=== PATIENT | female | born 1960 | race Caucasian/White ===

== ENCOUNTER 2019-11-03 06:13 | Inpatient (IN) | payer OTHER ==
[2019-11-03] MEDS ORDERED: niCARdipine 20MG In NaCl 20 MG/200 ML BAG ONE (06:26)
--- NOTE | 2019-11-03 06:59 | PDOC.FPRHP ---
- History of Present Illness Chief Complaint: Stroke History of Present Illness: Pt is a 59 yo female transferred from [place] secondary to a hemorrhagic stroke noted on CT scan. EMS was notified by pt's out of town who was unable to get in touch with her for 17 hours. EMS found pt and was unable to provide much information but was having "stroke-like" symptoms affecting R side strength and a degree of aphasia. PCP: [facility] Course: In the ED, Dr. Cramer consulted Neurosurgery, Jose. Cardene drip initiated. Believe it is non-surgical. - History PMHx: PSHx: FHx: Social: - Vital signs BP: 146/88 HR: 112 RR: 20 Tmax: 98.4 Pox: 97% on RA Wt: 98 kg FMR H&P: Upper Level - Pertinent history 59 yo F with hx of HTN here as transfer from [place] with dx there of hemorrhagic CVA. 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 She was found after a wellness check called in by her who is currently abroad. Upon arrival to the ED she was aphasic and had right hemiplegia. There were no significant lab abnormalities. BP was greater than [address] here show intracranial hemorrhage in the L MCA distribution. Neurosurgery was consulted from the ER who determined there to be no surgical intervention indicated at that time. She was started on a Cardene drip in the ER and BP improved to the 140 systolic range. Upon evaluation pt could no appropriately answer questions PMHx HTN Surgical hx Appendectomy Social No etoh, tobacco, or drug history - Pertinent findings See physician/internist note for full ROS, PE, vitals, and labs ROS unobtainable PE General NAD, awake and responsive HEENT NCAT CV RRR, 3/6 systolic murmur Resp CTA, no respiratory distress Abd non tender, no distension, normal BS Extremities no edema, equal pedal pulses Skin multiple dressed ulcerations on LE Neuro pt has slowed mentation, but will move all extremities upon command. She has equal strength b/l. CN appear to be intact, however she is having some difficulty following commands involved in evaluation. Pt can speak, however does not answer appropriately - Plan Date/Time: 11/03/19 0656 Alonso Cai, PGY3, have evaluated this patient and agree with findings/ plan as outlined by physician/internist resident. Pertinent changes/additions are listed here. 1.Acute hemorrhagic CVA -Admit to CCU -Continue cardene with goal of <160 systolic per neurosurg recommendations -Repeat CT at 1200 -Consult stroke team -Lipid, A1c, TSH 2.HTN -Pt apparently not on any meds per . Will start meds as indicated by BP after cardene is stopped PPx SCD Diet NPO Code Full Addendum - Attending - Attending Attestation Date/Time: 11/03/19 0900 I personally evaluated the patient and discussed the management with Dr. Rosado /Olga. I agree with the History, Examination, Assessment and Plan documented above with any addition or exceptions noted below. Patient here with acute hemorrhagic infarct seen on CT with initial R sided paresis that has improved somewhat. She is currently awake, but slow to respond. Has expressive aphasia. She is able to move both the RUE and RLE. NSGY on board, recommends repeat NCHCT in a few hours. Cardene with goal SBP <160. Will need otherwise the normal post- hemorrhagic CVA care including Neuro, therapy services, and likely placement. Hold ASA.
[2019-11-03] MEDS ORDERED: Bisacodyl 10 MG SUPP PR PRN (08:11)
--- NOTE | 2019-11-03 08:11 | CON ---
DATE OF CONSULTATION: Ms. Loera is a 59-year-old woman transferred to us from [facility] for stroke-like symptoms reportedly from hospital there. is deployed overseas and had been in contact with his now 20 to 24 hours ago, but had not heard from her since and has not been able to make any contact since either. For this reason, he called the [facility] for a welfare check. At which point, folks found her on scene confused with possible stroke-like symptoms. She was taken to [place] ER, where CT was performed, that showed a superficial left-sided frontoparietal intracerebral hemorrhage, which measures roughly 40 cubic centimeter in size with sizable rim of vasogenic edema and midline shift, measuring around 3 mm. She was then transferred to [facility] for further evaluation and admission. We do not have any medical history on file other than knowing patient has history of hypertension. She was extraordinarily hypertensive in the department in [place] and upon arrival here with systolics in the 220s, though we do not know what medications that she is currently on. is not reachable given he is out of the country at the moment and we have no other additional contacts to verify. Coagulation studies and platelet count are normal. However, there are certainly anticoagulant and antiplatelets that will not cause such drastic lab abnormalities. At bedside this morning, the patient is drowsy, but arousable with minimal effort. Upon repeated questioning, she is able to tell me her name, but does not tell me the month or the year. She does follow simple commands, squeezes my hands, raises her legs, wiggles her toes bilaterally. She actually has quite excellent strength in the right upper and right lower extremity, which sounds to be much improved, given our initial discussion was right-sided weakness that was pretty dense. Recommendation at this time, systolic pressure is under [address] scan around noon today. As long as this looks stable, this likely represents nonoperative hemorrhage if she develops more significant midline shift and vasogenic edema, it is reasonable to consider adding mannitol therapy, but for now, we will hold this given her relatively improved neurologic examination and minimal midline shift. We will know more after repeat CT. Job ID: [id number]
[2019-11-03] MEDS: Sodium Chloride 0.9% 1,000 ML IV SCH ×2 (09:34→16:15)
[2019-11-03] MEDS: Famotidine/PF 20 mg/2ml Vial SLOW IVP SCH ×2 (09:34→20:15)
[2019-11-03] MEDS: niCARdipine 25 MG in Sodium Chloride 0.9% 250 ML 240 ML IVPB PRN ×3 (09:35→17:25)
[2019-11-03] MEDS: Morphine 2 MG/ML SYRINGE SLOW IVP PRN ×3 (11:26→20:16)
--- NOTE | 2019-11-03 12:21 | CT ---
CT BRAIN NONCONTRAST: DATE: 11/03/2019 12 6:00 PM HISTORY: 59-year-old female follow-up intracranial hemorrhage COMPARISON: 11/03/2019 4:59 AM FINDINGS: Previously, the scan was performed in transverse plane, without angulation. On the current CT, the st andard coronal-transverse angulation was applied. This makes comparison slightly difficult. The acute left temporal parietal large intra-axial hematoma measuring approximately 5.8 x 3.9 cm, wit h surrounding vasogenic edema, has probably not significantly changed in size. It causes mass effect, completely effacing the trigone and occipital horn of the left lateral ventricle, distorting the lateral ventricles, and causing right to left midline shift of the septum pellucidum a distance of approximately 0.8 cm. There is no new hemorrhage. There is probably no interval change overall. IMPRESSION: 1) large, acute, left cerebral intra-axial hematoma causing mass effect and subfalcine herniation. 2) probably no significant interval change. 3) continued follow-up recommended.
--- NOTE | 2019-11-03 12:39 | CON ---
DATE OF CONSULTATION: HISTORY OF PRESENT ILLNESS: Jacinta Loera is a 59-year-old female from [place], who apparently was found with stroke-like symptoms. In the emergency room, CT showed a large left-sided hemorrhage, probably hypertensive. She was put on a Cardene drip and transferred here. In the ICU, she has been complaining of some pain, she is not moving her right side. Pulse is 103, blood pressure 160/83, saturations 95%, and respiratory rate 17. We are unable to get any additional information at this stage. We will try and obtain one as soon as family is available. PAST MEDICAL HISTORY: Unknown. PAST SURGICAL HISTORY: Unknown. REVIEW OF SYSTEMS: Otherwise, unobtainable. PHYSICAL EXAMINATION: VITAL SIGNS: Temperature is 98, pulse is 107, blood pressure 159/83, and sats are 95%. CHEST: Decreased breath sounds. No wheezing. CARDIAC: Normal S1 and S2. No gallops. ABDOMEN: No masses. LABORATORY DATA: Labs, so far, unremarkable. Lytes are normal. White count 15,000 drug screen is negative. IMPRESSION: Left temporoparietal hemorrhage, large, 5 x 5 cm, history of presumed hypertension. PLAN: The patient is complaining of pain. We are going to initiate some pain medicine, low-dose morphine. Unfortunately, there is no IV Tylenol. Pulmonary/Critical Care will follow while in the ICU. Consultation note, 70 minutes, 50% direct patient care. Please note, we will wait for additional history to be obtained from family members as soon as they arrive. Job ID: [id number]
--- NOTE | 2019-11-03 13:49 | CON ---
DATE OF CONSULTATION: 11/03/2019 REASON FOR CONSULTATION: Hemorrhagic stroke. HISTORY OF PRESENT ILLNESS: Ms. Jacinta Loera is a 59-year-old female, who has been transferred from [place] because of hemorrhagic stroke, which was noted on head CT. The patient is unable to provide history at this time. The history is obtained from review of the records. According to the review of the records, the who was out of town called the EMS to check on the patient since he was unable to get in touch for the last 17 hours. EMS found the patient at home, confused and unable to provide history with right-sided weakness. In the emergency room, she was found to be aphasic and had right hemiplegia. Her blood pressure was greater than [address] shows intracranial hemorrhage in the left MCA distribution. Neurosurgery was consulted and they determined there was no surgical intervention needed at this time and she was started on Cardene drip and sent to ICU for further evaluation. REVIEW OF SYSTEMS: Unobtainable due to patient's mental status. PAST MEDICAL HISTORY: Hypertension. PAST SURGICAL HISTORY: Appendectomy. SOCIAL HISTORY: . Lives with . No history of alcohol, illegal drug abuse, or tobacco abuse. FAMILY HISTORY: No significant history. PHYSICAL EXAMINATION: GENERAL: The patient is awake, alert, follows commands intermittently. HEENT: Normocephalic and atraumatic. CVS: Regular rate and rhythm. CHEST: Clear. ABDOMEN: Soft. NEUROLOGICAL: Mental status; the patient is alert, awake, follows commands intermittently. Oriented to her name only. Cranial nerves 2 through 12 intact. Speech, receptive aphasia. Muscle, tone, and bulk are normal. Strength 3/5 in the right upper and lower extremity. 5/5 in the left upper and lower extremity. Sensory: Withdraws to nailbed pressure, left greater than right. Cerebellar, did not cooperate with the exam. Gait deferred due to patient's safety reason. She does seem to have right extraocular movements. Follows commands intermittently , but appears to have right homonymous hemianopia. Pupils equal and reactive to light. Face symmetric. Tongue midline. Moves neck in both direction. Hearing seems to be intact. DATA REVIEWED: I reviewed the head CT, which showed hemorrhage in the left MCA distribution. ASSESSMENT AND PLAN: Ms. Jacinta Loera is consulted for hemorrhagic stroke. Recommend MRI of the brain when stable. Neuro checks every 2 hours. Consider stat noncontrast head CT if the condition is going to decline. Hold aspirin at this time. Monitor blood pressure. Systolic blood pressure should be less than 160. Continue medical management per primary team. MRI of the brain when stable. 2D echocardiogram, carotid Dopplers when stable. Check lipid panel, hemoglobin A1c, TSH, telemetry. Continue medical management per primary team. PT/OT/Speech when stable. We will continue to follow. Thank you for the consult. Job ID: [id number] [facility] CENTERZarina
[2019-11-03] MEDS ORDERED: Mannitol 12.5 GM/50 ML SLOW IVP SCH (15:00)
[2019-11-03] MEDS ORDERED: MANNITOL IV SCH ×2 (15:15)
[2019-11-04] MEDS: niCARdipine 25 MG in Sodium Chloride 0.9% 250 ML 240 ML IVPB PRN ×3 (00:20→11:08)
[2019-11-04] MEDS: Morphine 2 MG/ML SYRINGE SLOW IVP PRN (00:43)
[2019-11-04] MEDS: Sodium Chloride 0.9% 1,000 ML IV SCH ×3 (00:46→16:14)
[2019-11-04 03:57] LABS: #Lymphocytes 0.7 thou/uL (1.20-3.40); #Monocytes 0.4 thou/uL (0.11-0.59); #Neutrophils 11.1 thou/uL (1.40-6.50); %Basophils 0.1 % (0.0-1.0); %Eosinophils 0.1 % (0.0-10.0); %Lymphocytes 5.8 % (21.0-51.0); %Monocytes 3.6 % (0.0-10.0); %Neutrophils 90.5 % (42.0-75.0); Hemoglobin 13.3 g/dL (12.0-16.0); Mean Corpuscular HGB CONC 33.8 g/dL (32.0-36.0); Mean Corpuscular Volume 82.9 fL (78.0-98.0); Mean Platelet Volume 9.4 fL (7.4-10.4); Platelet Count 218 thou/uL (130-400); RBC Distribution Width 13.4 % (11.5-14.5); Red Blood Cell (RBC) Count 4.73 mill/uL (4.20-5.40); White Blood Cell (WBC) Count 12.3 thou/uL (4.8-10.8)
[2019-11-04 04:26] LABS: Anion Gap 11 mmol/L (10-20); BUN (Urea Nitrogen) 11 mg/dL (9.8-20.1); Calc. Creatinine Clearance 93 mL/min (70-130); Calcium 9.5 mg/dL (7.8-10.44); Carbon Dioxide 25 mmol/L (22-29); Cardiac Risk 5.2 (Less than 4.5); Chloride 107 mmol/L (98-107); Cholesterol 193 mg/dl (< 200 Desired); Estimated GFR-MDRD 73; Glucose 129 mg/dL (70-105); HDL Cholesterol 37 mg/dL (>60 Neg Risk); LDL Cholesterol, Calculated 137 mg/dL; Potassium 3.4 mmol/L (3.5-5.1); Sodium 140 mmol/L (136-145); Triglycerides 96 mg/dL (Less than 150)
--- NOTE | 2019-11-04 07:26 | PDOC.FM ---
- Subjective Subjective: NAEO per nursing. Patient unable to effectively communicate or answer questions. Semi fluent speech but inappropriate responses to questions, similar to yesterday's exam. Awake, alert but difficulty with comprehension. Patient denies pain, headache. - Objective MAR Reviewed: Yes Vital Signs & Weight: Vital Signs (12 hours) Temp Pulse Ox 11/04/19 07:10 95 11/04/19 04:00 99.2 F 11/04/19 00:44 92 L 11/04/19 00:00 98.5 F 11/03/19 20:00 99.4 F 92 L Weight Weight 76 kg Most Recent Monitor Data Heart Rate from ECG 105 NIBP 146/93 NIBP BP-Mean 110 Respiration from ECG 15 SpO2 95 I&O: 11/03/19 11/04/19 11/05/19 06:59 06:59 06:59 Intake Total 3933 0 Output Total 3150 65 Balance 783 -65 Result Diagrams: 11/04/19 03:19 11/04/19 03:19 Phys Exam - Physical Examination Constitutional: NAD HEENT: PERRLA, moist MMs, sclera anicteric Neck: full ROM no respiratory distress Cardiovascular: no significant murmur tachycardic Gastrointestinal: soft, non-tender Musculoskeletal: no edema Neurological: non-focal, moves all 4 limbs pt responds with coherent wording but inappropriately Deviation from normal: a&o x0 due to comprehension Dx/Plan (1) Hemorrhagic cerebrovascular accident (CVA) Code(s): I61.9 - NONTRAUMATIC INTRACEREBRAL HEMORRHAGE, UNSPECIFIED Status: Acute (2) Chronic hypertension Code(s): I10 - ESSENTIAL (PRIMARY) HYPERTENSION Status: Acute - Plan Plan: Acute hemorrhagic CVA with subfalcine herniation Neuro exam unchanged today S/P mannitol x1 BP control < 160mmHg, cardizem gtt at 7.5 Neurosurgery on board, recs appreciated Chronic HTN Will need to start jail antihypertensive once stabilized VTE: scd's, anticoagulation contraindicated Diet: NPO, pending speech Fluids: NS 130 mls/hr while NPO Code: full per Dispo: Continue BP control w/ cardene drip. Diet pending speech eval. Continue neuro checks. Addendum - Attending - Attending Attestation Date/Time: 11/04/19 1153 I personally evaluated the patient and discussed the management with Dr. Vazquez. I agree with the History, Examination, Assessment and Plan documented above with any addition or exceptions noted below. Patient mentation overall improved this morning. She has been cleared by [facility] [employer] COORDINATOR for a PO diet. Will start transitioning to PO BP meds and wean Cardene. NSGY and Neuro on board. Suspect once off Cardene that she can transfer to stroke unit. Holding ASA, but continue other usual post-CVA care.
[2019-11-04 08:07] LABS: Hemoglobin A1c 5.5 % (4.0-6.0)
[2019-11-04] MEDS: Famotidine/PF 20 mg/2ml Vial SLOW IVP SCH (08:38)
--- NOTE | 2019-11-04 08:43 | PRG ---
DATE OF SERVICE: SUBJECTIVE: This morning, less nauseated, still got a headache. OBJECTIVE: VITAL SIGNS: Saturations are 95% on room air, blood pressure 146/90, pulse 100. She is on a Cardene drip. CHEST: No wheezing. No crackles. CARDIAC: Normal S1, S2. No gallops. ABDOMEN: Soft. LABORATORY DATA: Potassium 3.4. CT head shows a left intracerebral hemorrhage with shift. PLAN: Continue supportive care. Agree with Speech. If she can swallow, we can give her some potassium. We will follow while in the ICU. Job ID: [id number]
[2019-11-04] MEDS ORDERED: Potassium Chloride 20 MEQ TAB PO SCH (10:30)
[2019-11-04] MEDS ORDERED: Carvedilol 6.25 MG TAB PO SCH (10:30)
--- NOTE | 2019-11-04 12:34 | PDOC.HOSPP ---
- Subjective Encounter Date: 11/04/19 Subjective: NEUROLOGY PROGRESS NOTE No acute events overnight. Patient more responsive today. - Objective Vital Signs & Weight: Vital Signs (12 hours) Temp Pulse Pulse BP BP BP Pulse Ox 11/04/19 12:00 98.4 F 11/04/19 10:58 136/81 11/04/19 10:31 100 100 136/81 138/83 11/04/19 07:10 95 11/04/19 04:00 99.2 F 11/04/19 00:44 92 L Pulse Ox Pulse Ox 11/04/19 12:00 11/04/19 10:58 11/04/19 10:31 95 96 11/04/19 07:10 11/04/19 04:00 11/04/19 00:44 Weight Admit Weight 167 lb Weight 167 lb 8.821 oz Most Recent Monitor Data Heart Rate from ECG 91 NIBP 122/76 NIBP BP-Mean 91 Respiration from ECG 16 SpO2 96 I&O: 11/03/19 11/04/19 11/05/19 06:59 06:59 06:59 Intake Total 3933 0 Output Total 3150 555 Balance 783 -555 Result Diagrams: 11/04/19 03:19 11/04/19 03:19 Additional Labs: Accuchecks 11/04/19 11/03/19 11/03/19 00:21 18:00 12:49 POC Glucose 128 H 86 94 Radiology Reviewed by me: Yes EKG Reviewed by me: Yes Hospitalist ROS - Review of Systems ROS unobtainable: due to mental status Neurological: reports: weakness, numbness - Medication Medications: Active Medications Generic Name Dose Route Start Last Admin Trade Name Freq PRN Reason Stop Dose Admin Famotidine 20 mg 11/03/19 09:00 11/04/19 08:38 Pepcid SLOW IVP 20 mg Q12HR NANDO Administration Sodium Chloride 1,000 mls @ 135 mls/hr 11/03/19 08:11 11/04/19 08:43 Normal Saline 0.9% IV 1,000 mls .[id number] NANDO Administration Nicardipine HCl 25 mg/ Sodium 250 mls @ 0 mls/hr 11/03/19 08:44 11/04/19 11: 08 Chloride IVPB 250 mls INF PRN Administration SBP > 140 Protocol Titrate Morphine Sulfate 2 mg 11/03/19 10:58 11/04/19 00:43 Morphine SLOW IVP 2 mg Q4H PRN Administration Mild-Moderate Pain (1-5) Potassium Chloride 40 meq 11/04/19 10:30 11/04/19 10:58 K-Dur PO 11/04/19 13:00 40 meq NOW NANDO Administration - Exam General Appearance: awake alert Eye: PERRL ENT: normocephalic atraumatic Neck: supple Heart: RRR Respiratory: CTAB Gastrointestinal: soft Extremities: no cyanosis, no clubbing, no edema Skin: normal turgor, no lesions, no rashes Neurological: hemiplegia, speech deficit Psychiatric: normal affect, normal behavior, oriented to person Hosp A/P (1) Hemorrhagic cerebrovascular accident (CVA) Code(s): I61.9 - NONTRAUMATIC INTRACEREBRAL HEMORRHAGE, UNSPECIFIED Status: Acute (2) Chronic hypertension Code(s): I10 - ESSENTIAL (PRIMARY) HYPERTENSION Status: Acute - Plan plan discussed w/ family (Plan discussed with son), speech therapy 59 year old female with hemorrhagic stroke. CT head showed large intraparenchymal hematoma in the left temporal parietal region measuring about 5.2 cm x 3.9 cm x 5.4 cm with adjacent vasogenic edema. There is a midline shift to the right side for about 8 mm. There is effacement of the occipital horn of the lateral ventricle. Repeat HCT stable. Neurochecks everyt 2 hours. Repeat NCHCT if the condition declines. Monitor BP ON cardene drip SBP < 160. Telemetry Cleared by speech . Continue supportive measures. Hold AC for now. Stroke work up including MRI brain, Echo and carotid dopplers when stable. PT/OT when stable. Plan discussed in detail with the patient's son.
[2019-11-04] MEDS: Carvedilol 6.25 MG TAB PO SCH (16:34)
[2019-11-04] MEDS: Famotidine 20 MG TAB PO SCH (20:15)
[2019-11-05 03:44] LABS: #Lymphocytes 1.5 thou/uL (1.20-3.40); #Monocytes 0.7 thou/uL (0.11-0.59); #Neutrophils 7.9 thou/uL (1.40-6.50); %Basophils 0.2 % (0.0-1.0); %Eosinophils 0.3 % (0.0-10.0); %Lymphocytes 14.6 % (21.0-51.0); %Monocytes 7.1 % (0.0-10.0); %Neutrophils 77.9 % (42.0-75.0); Hemoglobin 13.2 g/dL (12.0-16.0); Mean Corpuscular HGB CONC 32.2 g/dL (32.0-36.0); Mean Corpuscular Hemoglobin 26.7 pg (27.0-31.0); Mean Corpuscular Volume 82.8 fL (78.0-98.0); Mean Platelet Volume 8.6 fL (7.4-10.4); Platelet Count 218 thou/uL (130-400); RBC Distribution Width 13.1 % (11.5-14.5); Red Blood Cell (RBC) Count 4.94 mill/uL (4.20-5.40); White Blood Cell (WBC) Count 10.1 thou/uL (4.8-10.8)
[2019-11-05 04:06] LABS: Anion Gap 9 mmol/L (10-20); BUN (Urea Nitrogen) 11 mg/dL (9.8-20.1); Calc. Creatinine Clearance 92 mL/min (70-130); Calcium 9.3 mg/dL (7.8-10.44); Carbon Dioxide 29 mmol/L (22-29); Chloride 105 mmol/L (98-107); Estimated GFR-MDRD 74; Glucose 98 mg/dL (70-105); Potassium 3.2 mmol/L (3.5-5.1); Sodium 140 mmol/L (136-145)
--- NOTE | 2019-11-05 07:14 | PDOC.FM ---
- Subjective Subjective: NAEO. Cardene gtt off last evening. SBPs all under control. Pt able to respond yes/no to questions. Follow simple commands. Less lethargic compared to yesterday. Difficulty with speech still - Objective Vital Signs & Weight: Vital Signs (12 hours) Temp Pulse Ox 11/05/19 04:00 98.9 F 11/05/19 01:00 98.5 F 11/05/19 00:32 92 L 11/04/19 22:00 98.7 F 11/04/19 20:00 97 Weight Admit Weight 75.75 kg Weight 79.2 kg Most Recent Monitor Data Heart Rate from ECG 85 NIBP 137/89 NIBP BP-Mean 105 Respiration from ECG 0 SpO2 96 I&O: 11/04/19 11/05/19 11/06/19 06:59 06:59 06:59 Intake Total 3933 2521 Output Total 3150 2260 Balance 783 261 Result Diagrams: 11/05/19 03:29 11/05/19 03:29 Phys Exam - Physical Examination Constitutional: NAD HEENT: PERRLA, sclera anicteric Respiratory: no wheezing, clear to auscultation bilateral Cardiovascular: no significant murmur tachycardic Gastrointestinal: soft, non-tender Musculoskeletal: no edema difficulty with right hand movement. 3/5 strength in other extrem speech pauses but fluent Deviation from normal: flat affect Dx/Plan (1) Hemorrhagic cerebrovascular accident (CVA) Code(s): I61.9 - NONTRAUMATIC INTRACEREBRAL HEMORRHAGE, UNSPECIFIED Status: Acute (2) Chronic hypertension Code(s): I10 - ESSENTIAL (PRIMARY) HYPERTENSION Status: Acute - Plan Plan: Acute hemorrhagic CVA with subfalcine herniation Neuro exam unchanged today S/P mannitol x1 BP control controlled with PO coreg, cardene gtt discontinued PT/ST/OT eval today Echo, carotid dopplers Stable to stroke transfer Chronic HTN Coreg Hypokalemia Replace, check Mg VTE: scd's, anticoagulation contraindicated Diet: Puree Fluids: SL Code: full per Dispo: Continue CVA w/u with CM consulted to work on placement after PT/ST/OT. Addendum - Attending - Attending Attestation Date/Time: 11/05/19 1131 I personally evaluated the patient and discussed the management with Dr. Vazquez. I agree with the History, Examination, Assessment and Plan documented above with any addition or exceptions noted below. Patient overall stable. BP improved but will increase Coreg for better control. Off Cardene. Needs the usual post CVA care and therapy. Neuro on board. Will need likely rehab placement once she is stable for discharge.
[2019-11-05] MEDS: Famotidine 20 MG TAB PO SCH ×2 (08:47→22:13)
[2019-11-05] MEDS: Pot Chloride/Pot Bicarb/Cit Ac 25 mEq Effervescent Tablet PO SCH (08:47)
[2019-11-05] MEDS: Carvedilol 6.25 MG TAB PO SCH ×2 (08:48→16:48)
[2019-11-05] MEDS ORDERED: Potassium Chloride 20 MEQ TAB PO SCH (09:00)
[2019-11-05] MEDS ORDERED: Carvedilol 6.25 MG TAB PO SCH (09:21)
--- NOTE | 2019-11-05 09:27 | PRG ---
DATE OF SERVICE: 11/05/2019 SUBJECTIVE: This morning, she is a little bit more awake, responsive, less headache, still not moving the right side. OBJECTIVE: VITAL SIGNS: Blood pressure 154/92, pulse 70, respiratory rate 18, saturations are 95% on room air. CHEST: No wheezing, crackles. CARDIAC: Normal S1, S2. No gallops. ABDOMEN: No masses. LABORATORY DATA: Unremarkable. ASSESSMENT: Hypertensive bleed, left sided; residual right hemiparesis. P.o. medication and PT supportive care. She will probably be transferred to the Stroke Unit. Job ID: [id number]
--- NOTE | 2019-11-05 11:50 | PDOC.HOSPP ---
- Subjective Encounter Date: 11/05/19 Subjective: NEUROLOGY PROGRESS NOTE No acute events overnight. More alert and following commands intermitttently. She is speaking in senternces but does not reply appropriately yo questions and unable to tell her name. - Objective Vital Signs & Weight: Vital Signs (12 hours) Temp BP Pulse Ox 11/05/19 09:38 169/100 H 11/05/19 08:48 144/90 H 11/05/19 07:15 96 11/05/19 07:00 99.1 F 11/05/19 04:00 98.9 F 11/05/19 01:00 98.5 F 11/05/19 00:32 92 L Weight Admit Weight 167 lb Weight 174 lb 9.698 oz Most Recent Monitor Data Heart Rate from ECG 88 NIBP 147/93 NIBP BP-Mean 111 Respiration from ECG 16 SpO2 93 I&O: 11/04/19 11/05/19 11/06/19 06:59 06:59 06:59 Intake Total 3933 2521 240 Output Total 3150 2260 485 Balance 783 261 -245 Result Diagrams: 11/05/19 03:29 11/05/19 03:29 Additional Labs: Accuchecks 11/04/19 11/04/19 11/04/19 20:19 15:44 09:23 POC Glucose 99 92 123 H Radiology Reviewed by me: Yes EKG Reviewed by me: Yes Hospitalist ROS - Review of Systems ROS unobtainable: due to mental status (aphasia) Neurological: reports: change in speech - Medication Medications: Active Medications Generic Name Dose Route Start Last Admin Trade Name Freq PRN Reason Stop Dose Admin Carvedilol 6.25 mg 11/04/19 17:00 11/05/19 08:48 Coreg PO 6.25 mg BID-WM NANDO Administration Carvedilol 6.25 mg 11/05/19 09:21 11/05/19 09:38 Coreg PO 11/05/19 12:00 6.25 mg NOW NANDO Administration Famotidine 20 mg 11/04/19 21:00 11/05/19 08:47 Pepcid PO 20 mg Q12HR NANDO Administration Nicardipine HCl 25 mg/ Sodium 250 mls @ 0 mls/hr 11/03/19 08:44 11/04/19 11: 08 Chloride IVPB 250 mls INF PRN Administration SBP > 140 Protocol Titrate Potassium Bicarb/Potassium Chloride 25 meq 11/05/19 08:00 11/05/19 08:47 K-Lyte Cl PO 25 meq QAM-WM NANDO Administration - Exam General Appearance: awake alert Eye: PERRL, anicteric sclera ENT: normocephalic atraumatic, no oropharyngeal lesions Neck: supple, symmetric Heart: RRR Respiratory: CTAB Gastrointestinal: soft Extremities: no cyanosis Skin: normal turgor, no lesions, no rashes Neurological: cranial nerve grossly intact, no new deficit, speech deficit Neurological - other findings: right hemiparesis, aphasia Musculoskeletal: normal tone, no muscle wasting Psychiatric: normal affect, not oriented (aphasia) Hosp A/P (1) Hemorrhagic cerebrovascular accident (CVA) Code(s): I61.9 - NONTRAUMATIC INTRACEREBRAL HEMORRHAGE, UNSPECIFIED Status: Acute (2) Chronic hypertension Code(s): I10 - ESSENTIAL (PRIMARY) HYPERTENSION Status: Acute - Plan plan discussed w/ family (sister), PT/OT, speech therapy, DVT proph w/SCDs 59 year old female with hemorrhagic stroke. CT head showed large intraparenchymal hematoma in the left temporal parietal region measuring about 5.2 cm x 3.9 cm x 5.4 cm with adjacent vasogenic edema. There is a midline shift to the right side for about 8 mm. There is effacement of the occipital horn of the lateral ventricle. Repeat HCT stable. Stable. Transferred to stroke unit. Recommend MRI brain. Recommend 2 D Echo and carotid dopplers. Neurochecks everyt 2 hours. Repeat NCHCT if the condition declines. Monitor BP ON cardene drip SBP < 160. Telemetry Strict control of BP and BG. Recommend statin for secondary stroke prevention. Continue supportive measures. PT/OT/ Speech when stable. Cpntinue medical management per primary team. Plan discussed in detail with the patient's sister
--- NOTE | 2019-11-05 13:54 | ULT ---
EXAM: BILATERAL CAROTID DUPLEX ULTRASOUND INCLUDING COLOR AND SPECTRAL DOPPLER IMAGIN11/05/19 HISTORY: CVA. FINDINGS: minimal intimal thickening bilaterally involving the distal CCAs and proximal ICAs. PSV right ICA 79 cm/s. EDV 12 cm/s. ICA/CCA ratio 0.8. PSV left ICA 68 cm/s. EDV 15 cm/s. ICA/CCA ratio 0.8. Vertebral flow is antegrade. IMPRESSION: 1. No abnormal increased velocities. 2. Minimal intimal thickening bilaterally, evidence for atherosclerotic carotid artery vascular disease. POS: AH
[2019-11-05] MEDS: hydrALAZINE 20 MG/ML VIAL SLOW IVP PRN ×2 (16:21→22:29)
--- NOTE | 2019-11-05 19:12 | MRI ---
MRI OF BRAIN WITHOUT CONTRAST: 11/05/19 INDICATIONS: Follow-up parenchymal hematoma. Hemorrhagic CVA given as reason for exam. COMPARISON: Comparison made to CT scans of 11/03/19. FINDINGS: The parenchymal hematoma involving the left parietal lobe is again noted. Hematoma measures 4 to 5 cm AP dimension, unchanged when compared to recent CT. Surrounding vasogenic edema and mild mass effect . There is midline shift measured at 6 to 7 mm, unchanged. Signal characteristic consistent with omid lving hematoma. There are high T1 areas with predominantly low T2 signal characteristics. This would be consistent with subacute hematoma. Mild restricted diffusion around the periphery of the hematoma. There is no other areas of restricted diffusion. The intracranial internal carotid arteries, cerebral arteries and basilar arteries show flow voids. D ural venous sinuses appear patent. IMPRESSION: Left parietal lobe hematoma is again noted. There is mass effect and midline shift which has not sign ificantly changed when compared to CT of 11/03/19. POS: AGW
[2019-11-05] MEDS: Atorvastatin Calcium 40 MG TAB PO SCH (22:13)
[2019-11-05] MEDS: Acetaminophen 325 MG TAB PO PRN (22:29)
[2019-11-06 05:02] LABS: #Lymphocytes 1.6 thou/uL (1.20-3.40); #Monocytes 0.8 thou/uL (0.11-0.59); #Neutrophils 7.7 thou/uL (1.40-6.50); %Basophils 0.3 % (0.0-1.0); %Eosinophils 0.5 % (0.0-10.0); %Lymphocytes 15.5 % (21.0-51.0); %Monocytes 7.7 % (0.0-10.0); %Neutrophils 76.1 % (42.0-75.0); Hemoglobin 14.3 g/dL (12.0-16.0); Mean Corpuscular HGB CONC 33.1 g/dL (32.0-36.0); Mean Corpuscular Hemoglobin 27.5 pg (27.0-31.0); Mean Corpuscular Volume 83.1 fL (78.0-98.0); Mean Platelet Volume 8.6 fL (7.4-10.4); Platelet Count 245 thou/uL (130-400); RBC Distribution Width 13.4 % (11.5-14.5); Red Blood Cell (RBC) Count 5.21 mill/uL (4.20-5.40); White Blood Cell (WBC) Count 10.1 thou/uL (4.8-10.8)
[2019-11-06 05:20] LABS: Anion Gap 10 mmol/L (10-20); BUN (Urea Nitrogen) 14 mg/dL (9.8-20.1); Calc. Creatinine Clearance 100 mL/min (70-130); Calcium 9.6 mg/dL (7.8-10.44); Carbon Dioxide 26 mmol/L (22-29); Chloride 107 mmol/L (98-107); Estimated GFR-MDRD 73; Glucose 110 mg/dL (70-105); Potassium 3.4 mmol/L (3.5-5.1); Sodium 140 mmol/L (136-145)
--- NOTE | 2019-11-06 06:41 | PDOC.FM ---
- Subjective Subjective: Patient doing well this morning. SBPs up in 160s-170s systolic yesterday, Coreg dose was increased yesterday evening and this morning all SBPs under control. Pt able to respond yes/no to questions. Follow simple commands. Difficulty with speech still. - Objective MAR Reviewed: Yes Vital Signs & Weight: Vital Signs (12 hours) Temp Pulse Resp BP BP BP Pulse Ox 11/06/19 04:23 98.1 F 65 12 117/77 94 L 11/05/19 23:26 99.1 F 83 12 131/64 95 11/05/19 22:29 83 170/93 H 11/05/19 20:01 98.6 F 81 16 135/76 95 Weight Admit Weight 75.75 kg Weight 83.915 kg Most Recent Monitor Data Heart Rate from ECG 88 NIBP 147/93 NIBP BP-Mean 111 Respiration from ECG 16 SpO2 93 I&O: 11/04/19 11/05/19 11/06/19 06:59 06:59 06:59 Intake Total 3933 2521 240 Output Total 3150 2260 1485 Balance 783 261 -1245 Result Diagrams: 11/06/19 04:38 11/06/19 04:38 Phys Exam - Physical Examination Constitutional: NAD HEENT: moist MMs, sclera anicteric Neck: no JVD, supple Respiratory: no wheezing, clear to auscultation bilateral Cardiovascular: RRR, no significant murmur Gastrointestinal: soft, no distention, positive bowel sounds Musculoskeletal: pulses present trace edema in BLE Neurological: moves all 4 limbs gross motor strength 3/5 in all extremities, slighly less on right Psychiatric: normal affect Deviation from normal: alert, oriented to person & place (hospital) Skin: no rash, normal turgor Dx/Plan (1) Hemorrhagic cerebrovascular accident (CVA) Code(s): I61.9 - NONTRAUMATIC INTRACEREBRAL HEMORRHAGE, UNSPECIFIED Status: Acute (2) Chronic hypertension Code(s): I10 - ESSENTIAL (PRIMARY) HYPERTENSION Status: Acute - Plan Plan: Patient is a 59 yo female who was found with AMS at home is admitted for hemorrhagic CVA: #Acute hemorrhagic CVA with subfalcine herniation -Neuro exam unchanged today -S/P mannitol x1 -BP control controlled with PO coreg started on 11/03, cardene gtt discontinued on 11/03 -Coreg dose increased from 6.25 to 12.5 mg BID on 11/04 -PT/ST/OT evaluated, all recommend rehab placement -ECHO pending -carotid dopplers unremarkable -transferred to stroke unit on 11/04 -MRI on 11/[address] head on 11/02 #Chronic HTN -continue Coreg, as above #Hypokalemia -Replace, check Mg VTE: scd's, anticoagulation contraindicated Diet: Puree--can advanced to ground textured solids per Speech therapy recs Fluids: SL Code: full per Dispo: Stable, admitted to inpatient on stroke unit. Continue CVA w/u with CM consulted to work on placement at rehab facility. Addendum - Attending - Attending Attestation Date/Time: 11/06/19 9213 I personally evaluated the patient and discussed the management with Dr. Watson. I agree with the History, Examination, Assessment and Plan documented above with any addition or exceptions noted below.
[2019-11-06] MEDS: Famotidine 20 MG TAB PO SCH ×2 (08:42→20:43)
[2019-11-06] MEDS: Carvedilol 6.25 MG TAB PO SCH ×2 (08:42→17:18)
[2019-11-06] MEDS: Pot Chloride/Pot Bicarb/Cit Ac 25 mEq Effervescent Tablet PO SCH (10:30)
--- NOTE | 2019-11-06 11:30 | PDOC.HOSPP ---
- Subjective Encounter Date: 11/06/19 Subjective: NEUROLOGY PROGRESS NOTE No acute events overnight. Patient off cardene drip and BP is under control. at bedside. - Objective Vital Signs & Weight: Vital Signs (12 hours) Temp Pulse Resp BP BP Pulse Ox 11/06/19 08:59 95 11/06/19 08:36 98.1 F 84 16 163/93 H 95 11/06/19 04:23 98.1 F 65 12 117/77 94 L Weight Admit Weight 167 lb Weight 185 lb Most Recent Monitor Data Heart Rate from ECG 88 NIBP 147/93 NIBP BP-Mean 111 Respiration from ECG 16 SpO2 93 I&O: 11/05/19 11/06/19 11/07/19 06:59 06:59 06:59 Intake Total 2521 240 250 Output Total 2260 1485 Balance 261 -1245 250 Result Diagrams: 11/06/19 04:38 11/06/19 04:38 Additional Labs: Accuchecks 11/05/19 17:54 POC Glucose 109 Radiology Reviewed by me: Yes EKG Reviewed by me: Yes Hospitalist ROS - Review of Systems ROS unobtainable: due to mental status (aphasia) - Medication Medications: Active Medications Generic Name Dose Route Start Last Admin Trade Name Freq PRN Reason Stop Dose Admin Acetaminophen 650 mg 11/05/19 07:09 11/05/19 22:29 Tylenol PO 650 mg Q6H PRN Administration Mild-Moderate Pain (1-5) Atorvastatin Calcium 40 mg 11/05/19 21:00 11/05/19 22:13 Lipitor PO 40 mg HS NANDO Administration Carvedilol 12.5 mg 11/05/19 17:00 11/06/19 08:42 Coreg PO 12.5 mg BID-WM NANDO Administration Famotidine 20 mg 11/04/19 21:00 11/06/19 08:42 Pepcid PO 20 mg Q12HR NANDO Administration Hydralazine HCl 10 mg 11/04/19 17:00 11/05/19 22:29 Apresoline SLOW IVP 10 mg Q4H PRN Administration SBP GREATER THAN 160 Nicardipine HCl 25 mg/ Sodium 250 mls @ 0 mls/hr 11/03/19 08:44 11/04/19 11: 08 Chloride IVPB 250 mls INF PRN Administration SBP > 140 Protocol Titrate - Exam Eye: PERRL ENT: normocephalic atraumatic Neck: supple Heart: RRR Respiratory: CTAB Gastrointestinal: soft Extremities: no cyanosis Skin: normal turgor Neurological: no new deficit, hemiplegia, speech deficit, vision deficit Neurological - other findings: right hemiplegia Musculoskeletal - other findings: ncreased tone on right Psychiatric: somnolent Hosp A/P (1) Hemorrhagic cerebrovascular accident (CVA) Code(s): I61.9 - NONTRAUMATIC INTRACEREBRAL HEMORRHAGE, UNSPECIFIED Status: Acute (2) Chronic hypertension Code(s): I10 - ESSENTIAL (PRIMARY) HYPERTENSION Status: Acute - Plan plan discussed w/ family, PT/OT, speech therapy 59 year old female with hemorrhagic stroke. Initial HCT showed large intraparenchymal hematoma in the left temporal parietal region measuring about 5.2 cm x 3.9 cm x 5.4 cm with adjacent vasogenic edema. There is a midline shift to the right side for about 8 mm. There is effacement of the occipital horn of the lateral ventricle. Repeat HCT stable. MRI brain from 11/05/2019 reviewed which showed stable findings and left parietal lobe hemorrhage. EEG ongoing for intermittent confusion. Will follow up on read. 2 D Echo pending Neurochecks every 2 hours. Repeat NCHCT if the condition declines. Strict control of BP . Patient off cardene drip and now on oral medications. Telemetry Strict control of BG. Continue high intensity statin for secondary stroke prevention. Continue supportive measures. PT/OT/ Speech recommended rehab. Awaiting placement. Continue medical management per primary team. Plan discussed in detail with the patient's
[2019-11-06 11:34] VITALS: BMI 30.7
--- NOTE | 2019-11-06 14:55 | EEG ---
Referring Physician: Jaime CERRATO EEG # [id number] TEST TYPE: CONTINUOUS EXTENDED VIDEO EEG REPORT: This EEG was performed using 24 channel [employer] digital video EEG machine with 24 disc electrodes. This was an extended inpatient video EEG recording. Digital analysis of the EEG was done for spike and seizure detection which revealed no abnormalities. BACKGROUND: There is a nonsustained posterior background rhythm of 8.5 hertz on the right. Absence of posterior background rhythm on the left. HYPERVENTILATION: Not performed PHOTIC STIMULATION: No significant response seen with photic stimulation. SLEEP: Drowsiness and sleep are observed. EEG DIAGNOSIS: 1.) Low amplitude delta and theta activity seen in the right frontotemporal and parietal-occipital regions. 2.) Occasional irregular theta activity seen in the left frontotemporal and parietal-occipital regions. 3.) Asymmetry of posterior background rhythm. Absence of posterior background rhythm on the left. CLINICAL INTERPRETATION: THIS EEG IS CONSISTENT WITH FOCAL CEREBRAL DYSFUNCTION IN THE LEFT CEREBRAL HEMISPHERE. THERE IS ALSO EVIDENCE OF MODERATE GENERALIZED NONSPECIFIC CEREBRAL DYSFUNCTION. NO ICTAL OR INTERICTAL EPILEPTIFORM ABNORMALITIES SEEN DURING THE RECORDING. Weapons Specialist: ILEANA Facilities Specialist: EEG.ISSA MARIA
[2019-11-06 17:56] LABS: Bacteria/HPF 2+ HPF (None Seen); Bilirubin Negative (Negative); Blood, Urine Negative (Negative); Clarity Turbid (Clear); Glucose, Urine (Dipstick) Normal (Negative); Leukocyte 500 Leu/uL (Negative); Nitrite Negative (Negative); Protein, Urine (Dipstick) 20 mg/dL (Neg-Trace); WBC/HPF 21-50 HPF (0-3)
[2019-11-06 17:58] LABS: Urine Culture Reflex No No
[2019-11-06] MEDS: Atorvastatin Calcium 40 MG TAB PO SCH (20:43)
[2019-11-06] MEDS: hydrALAZINE 20 MG/ML VIAL SLOW IVP PRN (22:36)
[2019-11-07] MEDS: hydrALAZINE 20 MG/ML VIAL SLOW IVP PRN ×2 (00:28→00:48)
[2019-11-07] MEDS: Acetaminophen 325 MG TAB PO PRN (01:07)
[2019-11-07] MEDS ORDERED: Morphine 2 MG/ML SYRINGE SLOW IVP SCH (02:00)
[2019-11-07] MEDS: cefTRIAXone\\ROCEPHIN 1 GM in Sodium Chloride 0.9% 100 ML IVPB SCH (05:35)
[2019-11-07 05:43] LABS: Anion Gap 16 mmol/L (10-20); BUN (Urea Nitrogen) 16 mg/dL (9.8-20.1); Calc. Creatinine Clearance 91 mL/min (70-130); Calcium 9.7 mg/dL (7.8-10.44); Carbon Dioxide 22 mmol/L (22-29); Chloride 105 mmol/L (98-107); Estimated GFR-MDRD 67; Glucose 124 mg/dL (70-105); Potassium 3.9 mmol/L (3.5-5.1); Sodium 139 mmol/L (136-145)
--- NOTE | 2019-11-07 07:23 | PDOC.FM ---
- Subjective Subjective: Patient doing okay this morning, per nursing and night team reports the patient was up for portion of night with a headache. This appears to be correlated with high blood pressures at the time. Max recorded is 184/91, required 3 doses of prn Hydralazine. Once BP improved then headache resolved. CT head was obtained with preliminary report revealing no changes from previous imaging, official read still pending. Pt able to respond yes/no to questions. Follow simple commands. Continued difficulty with speech, such as word finding. - Objective MAR Reviewed: Yes Vital Signs & Weight: Vital Signs (12 hours) Temp Pulse Resp BP BP BP Pulse Ox 11/07/19 07:11 98.1 F 78 16 145/79 H 95 11/07/19 04:42 97.6 F 83 14 138/81 95 11/07/19 01:12 88 141/85 H 11/07/19 00:48 88 184/91 H 11/07/19 00:28 85 170/88 H 11/07/19 00:09 170/88 H 11/07/19 00:01 98.4 F 53 L 18 155/96 H 93 L 11/06/19 22:43 150/97 H 11/06/19 22:36 76 175/91 H 11/06/19 20:31 98.6 F 89 16 125/70 97 Weight Admit Weight 78.199 kg Weight 81.647 kg Most Recent Monitor Data Heart Rate from ECG 88 NIBP 147/93 NIBP BP-Mean 111 Respiration from ECG 16 SpO2 93 I&O: 11/06/19 11/07/19 11/08/19 06:59 06:59 06:59 Intake Total 240 1450 Output Total 1485 1625 Balance -1245 -175 Result Diagrams: 11/07/19 07:07 11/07/19 05:13 Phys Exam - Physical Examination Constitutional: NAD HEENT: moist MMs Neck: no JVD, supple Respiratory: no wheezing, clear to auscultation bilateral Cardiovascular: RRR, no significant murmur Gastrointestinal: soft, no distention, positive bowel sounds Musculoskeletal: pulses present trace nonpitting edema in BLE. Gross motor strength 3/5 in extremities. Neurological: normal sensation, moves all 4 limbs Deviation from normal: flat affect, alert, oriented to person Skin: no rash, normal turgor Dx/Plan (1) Hemorrhagic cerebrovascular accident (CVA) Code(s): I61.9 - NONTRAUMATIC INTRACEREBRAL HEMORRHAGE, UNSPECIFIED Status: Acute (2) Chronic hypertension Code(s): I10 - ESSENTIAL (PRIMARY) HYPERTENSION Status: Acute - Plan Plan: Patient is a 59 yo female who was found with AMS at home is admitted for hemorrhagic CVA: #Acute hemorrhagic CVA with subfalcine herniation -Neuro exam unchanged today -S/P mannitol x1 -BP control with PO coreg started on 11/03, cardene gtt discontinued on 11/03 -Coreg dose increased from 6.25 to 12.5 mg BID on 11/04 -overnight of 11/05- required 3 doses of prn Hydralazine, consider adding another BP agent today -PT/ST/OT evaluated, all recommend rehab placement -ECHO pending -carotid dopplers unremarkable -transferred to stroke unit on 11/04 -MRI on 11/[address] head on 11/02 #Chronic HTN -continue Coreg, as above -consider 2nd agent #Hypokalemia -Replace, check Mg Social: Case Management consulted for placement. Choice letter signed for [facility] inpatient rehab, pending insurance approval. VTE: scd's, anticoagulation contraindicated Diet: Puree--can advanced to ground textured solids per Speech therapy recs Fluids: SL Code: full per Dispo: Stable, admitted to inpatient on stroke unit. Continue CVA w/u with CM consulted to work on placement at rehab facility. Addendum - Attending - Attending Attestation Date/Time: 11/07/19 1915 I personally evaluated the patient and discussed the management with Dr. Watson. I agree with the History, Examination, Assessment and Plan documented above with any addition or exceptions noted below. Patient with mild mental status and speech improvement. Had severe headache overnight, CT overall stable, and symptoms resolved with BP control. Escalating BP therapy today. Continue post CVA care and working to get patient to rehab in the next few days.
--- NOTE | 2019-11-07 07:48 | CT ---
PRELIMINARY REPORT/DIRECT RADIOLOGY/EMERGENCY AFTER HOURS PROCEDURE: PROCEDURE: CT Head without Contrast . HISTORY: Altered mental status. TECHNIQUE: Axial images were performed without the administration of IV contrast with or without mult iplanar reformations . COMPARISON: 11/03/2019. FINDINGS: Unchanged 5 cm intraparenchymal hemorrhage LEFT parietal lobe with adjacent edema. Unchange d 8mm midline shift of the septum pellucidum to the RIGHT. No hydrocephalus. No other acute change identified. IMPRESSION: Unchanged LEFT parietal lobe intraparenchymal hemorrhage with edema with midline shift to the RIGHT. ELECTRONICALLY SIGNED BY: Kayode Burr MD Nov 07, 2019 2:28:34 AM CDT FINAL REPORT CT BRAIN WITHOUT CONTRAST: HISTORY: Change in mentation. Altered mental status. COMPARISON: 11/03/2019 FINDINGS: Hemorrhage: Stable left temporal lobe hematoma with associated edema and sulcal effacement. Brain parenchyma: 0.9 cm [id number] subfalcine herniation which is slightly progressed. Ventricular system: Stable mass effect upon the left lateral ventricle. Left uncal herniation with ef facement of the left ambient cistern. Calvarium: Intact. Sinuses and mastoid air cells: Adequate aeration. IMPRESSION: 1. This report is in agreement with initial report by direct radiology. 2. Persistent left intraparenchymal hematoma with edema. There is slight progression of left to right subfalcine shift. Transcribed Date/Time: 11/07/2019 8:11 AM
[2019-11-07 07:50] LABS: #Eosinphils 0.1 thou/uL (0.0-0.7); #Lymphocytes 1.4 thou/uL (1.20-3.40); #Monocytes 0.8 thou/uL (0.11-0.59); #Neutrophils 9.8 thou/uL (1.40-6.50); %Basophils 0.2 % (0.0-1.0); %Eosinophils 0.6 % (0.0-10.0); %Lymphocytes 11.3 % (21.0-51.0); %Monocytes 6.4 % (0.0-10.0); %Neutrophils 81.5 % (42.0-75.0); Hemoglobin 14.3 g/dL (12.0-16.0); Mean Corpuscular HGB CONC 33.1 g/dL (32.0-36.0); Mean Corpuscular Hemoglobin 27.7 pg (27.0-31.0); Mean Corpuscular Volume 83.7 fL (78.0-98.0); Mean Platelet Volume 9.3 fL (7.4-10.4); Platelet Count 249 thou/uL (130-400); RBC Distribution Width 13.4 % (11.5-14.5); Red Blood Cell (RBC) Count 5.16 mill/uL (4.20-5.40)
[2019-11-07] MEDS: Amlodipine 5 MG TAB PO SCH (10:00)
[2019-11-07] MEDS: Carvedilol 6.25 MG TAB PO SCH ×2 (10:00→16:48)
[2019-11-07] MEDS: Famotidine 20 MG TAB PO SCH ×2 (10:01→21:56)
[2019-11-07] MEDS: Potassium Bicarbonate/Cit Ac 25 MEQ TAB PO SCH (10:01)
[2019-11-07] MEDS: Atorvastatin Calcium 40 MG TAB PO SCH (21:56)
[2019-11-08 04:59] LABS: #Basophils 0.1 thou/uL (0.0-0.2); #Eosinphils 0.2 thou/uL (0.0-0.7); #Lymphocytes 1.6 thou/uL (1.20-3.40); #Monocytes 0.6 thou/uL (0.11-0.59); #Neutrophils 7.8 thou/uL (1.40-6.50); %Basophils 0.5 % (0.0-1.0); %Eosinophils 2.1 % (0.0-10.0); %Lymphocytes 15.6 % (21.0-51.0); %Neutrophils 75.8 % (42.0-75.0); Hemoglobin 13.6 g/dL (12.0-16.0); Mean Corpuscular HGB CONC 32.7 g/dL (32.0-36.0); Mean Corpuscular Hemoglobin 27.4 pg (27.0-31.0); Mean Platelet Volume 9.2 fL (7.4-10.4); Platelet Count 232 thou/uL (130-400); RBC Distribution Width 13.6 % (11.5-14.5); Red Blood Cell (RBC) Count 4.96 mill/uL (4.20-5.40); White Blood Cell (WBC) Count 10.2 thou/uL (4.8-10.8)
[2019-11-08 05:18] LABS: Anion Gap 14 mmol/L (10-20); BUN (Urea Nitrogen) 18 mg/dL (9.8-20.1); Calc. Creatinine Clearance 87 mL/min (70-130); Calcium 9.6 mg/dL (7.8-10.44); Carbon Dioxide 23 mmol/L (22-29); Chloride 106 mmol/L (98-107); Estimated GFR-MDRD 63; Glucose 108 mg/dL (70-105); Potassium 3.6 mmol/L (3.5-5.1); Sodium 139 mmol/L (136-145)
[2019-11-08] MEDS: cefTRIAXone\\ROCEPHIN 1 GM in Sodium Chloride 0.9% 100 ML IVPB SCH (07:33)
--- NOTE | 2019-11-08 07:59 | PDOC.FM ---
- Subjective Subjective: Patient's exam improving this morning. She is able to have light conversation today with speaking in short sentences, for example when asked where her sons are she says "they are probably working at home". Still some difficulty with word finding. Able to follow simple commands. Denies any complaints this morning. BP stable overnight. - Objective MAR Reviewed: Yes Vital Signs & Weight: Vital Signs (12 hours) Temp Pulse Resp BP BP Pulse Ox 11/08/19 03:34 98.2 F 78 18 133/75 95 11/07/19 23:52 98.6 F 82 18 162/92 H 93 L Weight Admit Weight 78.199 kg Weight 81.647 kg Most Recent Monitor Data Heart Rate from ECG 88 NIBP 147/93 NIBP BP-Mean 111 Respiration from ECG 16 SpO2 93 I&O: 11/07/19 11/08/19 11/09/19 06:59 06:59 06:59 Intake Total 1450 476 Output Total 1625 375 Balance -175 101 Result Diagrams: 11/08/19 04:15 11/08/19 04:15 Phys Exam - Physical Examination Constitutional: NAD HEENT: moist MMs, sclera anicteric Neck: no JVD, supple Respiratory: no wheezing, clear to auscultation bilateral Cardiovascular: RRR, no significant murmur Gastrointestinal: soft, no distention, positive bowel sounds Musculoskeletal: no edema, pulses present Gross motor strength 3/5 in extremities. Neurological: normal sensation, moves all 4 limbs Psychiatric: normal affect Deviation from normal: alert, oriented to person and place Skin: no rash, normal turgor Dx/Plan (1) Hemorrhagic cerebrovascular accident (CVA) Code(s): I61.9 - NONTRAUMATIC INTRACEREBRAL HEMORRHAGE, UNSPECIFIED Status: Acute (2) Chronic hypertension Code(s): I10 - ESSENTIAL (PRIMARY) HYPERTENSION Status: Acute - Plan Plan: Patient is a 59 yo female who was found with AMS at home is admitted for hemorrhagic CVA: #Acute hemorrhagic CVA with subfalcine herniation -Neuro exam improved today -S/P mannitol x1 -BP control with PO coreg started on 11/03, cardene gtt discontinued on 11/03 -Coreg dose increased from 6.25 to 12.5 mg BID on 11/04 -overnight of 11/05- required 3 doses of prn Hydralazine -Norvasc 5 mg daily added to BP regimen on 11/06 -PT/ST/OT evaluated, all recommend rehab placement -ECHO shows EF 55-60%, mild LVH, diastolic dysfunction, mild MR & TR -carotid dopplers unremarkable -transferred to stroke unit on 11/04 -MRI on 11/[address] head on 11/02 #Chronic HTN -continue Coreg, as above -added Norvasc 5 mg on 11/06 #Hypokalemia, resolved -replace prn -monitor AM lab Social: Case Management consulted for placement. Choice letter signed for [facility] inpatient [facility], pending insurance approval. VTE: scd's, anticoagulation contraindicated Diet: Puree--can advanced to ground textured solids per Speech therapy recs Fluids: SL Code: full per Dispo: Stable, admitted to inpatient on stroke unit. Continue CVA w/u with CM consulted to work on placement at rehab facility. Addendum - Attending - Attending Attestation Date/Time: 11/08/19 8475 I personally evaluated the patient and discussed the management with Dr. Watson. I agree with the History, Examination, Assessment and Plan documented above with any addition or exceptions noted below. Patient improved. Continue therapy and awaiting rehab acceptance due to her large hemorrhagic infarct. BP improved with current regimen, no changes to that today. Once accepted for rehab should be stable for transfer at that time.
[2019-11-08] MEDS: Potassium Bicarbonate/Cit Ac 25 MEQ TAB PO SCH (09:46)
[2019-11-08] MEDS: Famotidine 20 MG TAB PO SCH ×2 (09:46→21:34)
[2019-11-08] MEDS: Carvedilol 6.25 MG TAB PO SCH ×2 (09:46→16:05)
[2019-11-08] MEDS: Amlodipine 5 MG TAB PO SCH (09:46)
[2019-11-08] MEDS: Atorvastatin Calcium 40 MG TAB PO SCH (21:34)
[2019-11-09 04:47] LABS: #Eosinphils 0.4 thou/uL (0.0-0.7); #Lymphocytes 1.5 thou/uL (1.20-3.40); #Monocytes 0.8 thou/uL (0.11-0.59); #Neutrophils 7.3 thou/uL (1.40-6.50); %Basophils 0.5 % (0.0-1.0); %Eosinophils 3.7 % (0.0-10.0); %Lymphocytes 15.4 % (21.0-51.0); %Monocytes 7.5 % (0.0-10.0); Hemoglobin 13.4 g/dL (12.0-16.0); Mean Corpuscular HGB CONC 33.3 g/dL (32.0-36.0); Mean Corpuscular Volume 84.1 fL (78.0-98.0); Mean Platelet Volume 9.3 fL (7.4-10.4); Platelet Count 233 thou/uL (130-400); RBC Distribution Width 13.4 % (11.5-14.5); Red Blood Cell (RBC) Count 4.79 mill/uL (4.20-5.40)
[2019-11-09] MEDS: hydrALAZINE 20 MG/ML VIAL SLOW IVP PRN (05:06)
[2019-11-09 05:11] LABS: Anion Gap 11 mmol/L (10-20); BUN (Urea Nitrogen) 17 mg/dL (9.8-20.1); Calc. Creatinine Clearance 95 mL/min (70-130); Calcium 9.4 mg/dL (7.8-10.44); Carbon Dioxide 25 mmol/L (22-29); Chloride 107 mmol/L (98-107); Estimated GFR-MDRD 70; Glucose 106 mg/dL (70-105); Potassium 3.8 mmol/L (3.5-5.1); Sodium 139 mmol/L (136-145)
[2019-11-09] MEDS: cefTRIAXone\\ROCEPHIN 1 GM in Sodium Chloride 0.9% 100 ML IVPB SCH (05:21)
--- NOTE | 2019-11-09 05:58 | PDOC.FM ---
- Subjective Subjective: Pt speaking in yes/no answers this morning. follows commands well. No events overnight, answers no to any pains, concerns, or complaints this morning. Informed of current placement status. - Objective Vital Signs & Weight: Vital Signs (12 hours) Temp Pulse Resp BP BP BP Pulse Ox 11/09/19 05:27 127/87 11/09/19 05:06 74 168/95 H 11/09/19 04:51 98.7 F 74 18 168/95 H 97 11/09/19 00:31 98.3 F 68 16 146/86 H 95 11/08/19 19:40 97.9 F 70 18 137/77 96 Weight Admit Weight 78.199 kg Weight 82.554 kg Most Recent Monitor Data Heart Rate from ECG 88 NIBP 147/93 NIBP BP-Mean 111 Respiration from ECG 16 SpO2 93 I&O: 11/07/19 11/08/19 11/09/19 06:59 06:59 06:59 Intake Total 1450 626 Output Total 1625 1225 Balance -175 -599 Result Diagrams: 11/09/19 04:17 11/09/19 04:17 Phys Exam - Physical Examination Constitutional: NAD HEENT: moist MMs Respiratory: clear to auscultation bilateral Cardiovascular: RRR Musculoskeletal: no edema, pulses present Neurological: moves all 4 limbs Yes/No communication Skin: no rash, cap refill <2 seconds Dx/Plan - Plan Plan: Acute hemorrhagic CVA with subfalcine herniation -Stable neuro exam today -PT/ST/OT evaluated, all recommend inpt rehab - Pending placement Chronic HTN -Currently titrating -Coreg 12.5 BID, Norvasc 5mg -Prn Hydralazine Hypokalemia, resolved -Replace prn UTI -UC + staph epi -Rocephin 1gm x3 - will DC as should be adequately treated -WBC and left shift resolved -Lamar in place Social: Case Management consulted for placement. Choice letter signed for [facility], pending insurance approval. No progress over weekend. VTE: scd's, anticoagulation contraindicated Diet: Puree--can advanced to ground textured solids per Speech therapy recs Fluids: SL Code: full per Dispo: Stable, stroke unit. Pending inpt rehab placement. Addendum - Attending - Attending Attestation Date/Time: 11/09/191841 I personally evaluated the patient and discussed the management with Dr. Hoffman I agree with the History, Examination, Assessment and Plan documented above with any addition or exceptions noted below - Patient up in neuro chair. Answers with yes/no; brief responses. Denies any complaints. Patient and concerned about lamar. Afebrile VSS. A/P: 1) Left hemorrhagic CVA- continue PT/OT/ST. Awaiting insurance approval for rehab. 2) HTN- BP much improved; continue current medications. 3) Urinary retention- voiding trial.
[2019-11-09] MEDS: Potassium Bicarbonate/Cit Ac 25 MEQ TAB PO SCH (08:18)
[2019-11-09] MEDS: Famotidine 20 MG TAB PO SCH ×2 (08:19→20:47)
[2019-11-09] MEDS: Amlodipine 5 MG TAB PO SCH (08:19)
[2019-11-09] MEDS: Carvedilol 6.25 MG TAB PO SCH ×2 (08:19→18:00)
--- NOTE | 2019-11-09 11:39 | PDOC.HOSPP ---
- Subjective Encounter Date: 11/09/19 Subjective: NEUROLOGY PROGRESS NOTE Patient more alert today but persistent aphasia. Per , able to name few things . Following commands appropriately. - Objective Vital Signs & Weight: Vital Signs (12 hours) Temp Pulse Resp BP BP BP BP 11/09/19 08:19 74 11/09/19 08:15 98.5 F 74 14 138/69 11/09/19 05:27 127/87 11/09/19 05:06 74 168/95 H 11/09/19 04:51 98.7 F 74 18 168/95 H 11/09/19 00:31 98.3 F 68 16 146/86 H Pulse Ox 11/09/19 08:19 11/09/19 08:15 95 11/09/19 05:27 11/09/19 05:06 11/09/19 04:51 97 11/09/19 00:31 95 Weight Admit Weight 172 lb 6.4 oz Weight 182 lb Most Recent Monitor Data Heart Rate from ECG 88 NIBP 147/93 NIBP BP-Mean 111 Respiration from ECG 16 SpO2 93 I&O: 11/08/19 11/09/19 11/10/19 06:59 06:59 06:59 Intake Total 626 Output Total 1540 775 Balance -039 -419 Result Diagrams: 11/09/19 04:17 11/09/19 04:17 Radiology Reviewed by me: Yes EKG Reviewed by me: Yes Hospitalist ROS - Review of Systems ROS unobtainable: due to mental status (aphasia) - Medication Medications: Active Medications Generic Name Dose Route Start Last Admin Trade Name Freq PRN Reason Stop Dose Admin Acetaminophen 650 mg 11/05/19 07:09 11/07/19 01:07 Tylenol PO 650 mg Q6H PRN Administration Mild-Moderate Pain (1-5) Amlodipine Besylate 5 mg 11/07/19 09:00 11/09/19 08:19 Norvasc PO 5 mg DAILY NANDO Administration Atorvastatin Calcium 40 mg 11/05/19 21:00 11/08/19 21:34 Lipitor PO 40 mg HS NANDO Administration Carvedilol 12.5 mg 11/05/19 17:00 11/09/19 08:19 Coreg PO 12.5 mg BID-WM NANDO Administration Famotidine 20 mg 11/04/19 21:00 11/09/19 08:19 Pepcid PO 20 mg Q12HR NANDO Administration Hydralazine HCl 5 mg 11/07/19 00:17 11/09/19 05:06 Apresoline SLOW IVP 5 mg Q15MIN PRN Administration SBP GREATER THAN 160 Potassium Bicarbonate/Citric Acid 25 meq 11/07/19 08:00 11/09/19 08:18 K-Vescent PO 25 meq QAM-WM NANDO Administration Sodium Chloride 10 ml 11/03/19 08:11 11/09/19 08:19 Flush - Normal Saline IVF 10 ml PRN PRN Administration Saline Flush - Exam General Appearance: awake alert Eye: PERRL, anicteric sclera ENT: normocephalic atraumatic Neck: supple Heart: RRR Respiratory: CTAB Gastrointestinal: soft Extremities: no cyanosis Skin: normal turgor Neurological: no new deficit, hemiplegia, speech deficit Neurological - other findings: right hemiparesis Musculoskeletal: no muscle wasting Musculoskeletal - other findings: decreased tone in RUE Psychiatric: normal affect, normal behavior (APHASIC) Hosp A/P (1) Hemorrhagic cerebrovascular accident (CVA) Code(s): I61.9 - NONTRAUMATIC INTRACEREBRAL HEMORRHAGE, UNSPECIFIED Status: Acute (2) Chronic hypertension Code(s): I10 - ESSENTIAL (PRIMARY) HYPERTENSION Status: Acute - Plan plan discussed w/ family, PT/OT, speech therapy, DVT proph w/lovenox 59 year old female with hemorrhagic stroke continues to be aphasic with right hemiparesis. MRI brain from 11/05/2019 reviewed which showed stable findings and left parietal lobe hemorrhage. EEG reviewed which did not reveal any seizure activity. 2 D Echo pending Neurochecks every 4 hours. Repeat NCHCT if the condition declines. Strict control of BP and BG. Telemetry Continue aspirin high intensity statin for secondary stroke prevention. Continue supportive measures. PT/OT/ Speech recommended rehab. Awaiting placement. Continue medical management per primary team. Plan discussed in detail with the patinet and the patient's
[2019-11-09] MEDS: Atorvastatin Calcium 40 MG TAB PO SCH (20:47)
[2019-11-10 04:30] LABS: #Eosinphils 0.5 thou/uL (0.0-0.7); #Lymphocytes 1.5 thou/uL (1.20-3.40); #Monocytes 0.9 thou/uL (0.11-0.59); #Neutrophils 8.5 thou/uL (1.40-6.50); %Basophils 0.4 % (0.0-1.0); %Eosinophils 4.1 % (0.0-10.0); %Lymphocytes 13.5 % (21.0-51.0); %Monocytes 7.7 % (0.0-10.0); %Neutrophils 74.4 % (42.0-75.0); Hemoglobin 13.3 g/dL (12.0-16.0); Mean Corpuscular HGB CONC 31.6 g/dL (32.0-36.0); Mean Corpuscular Hemoglobin 26.4 pg (27.0-31.0); Mean Corpuscular Volume 83.5 fL (78.0-98.0); Platelet Count 220 thou/uL (130-400); RBC Distribution Width 13.4 % (11.5-14.5); Red Blood Cell (RBC) Count 5.05 mill/uL (4.20-5.40); White Blood Cell (WBC) Count 11.4 thou/uL (4.8-10.8)
[2019-11-10 04:50] LABS: Anion Gap 12 mmol/L (10-20); BUN (Urea Nitrogen) 15 mg/dL (9.8-20.1); Calc. Creatinine Clearance 92 mL/min (70-130); Calcium 9.8 mg/dL (7.8-10.44); Carbon Dioxide 27 mmol/L (22-29); Chloride 105 mmol/L (98-107); Estimated GFR-MDRD 67; Glucose 114 mg/dL (70-105); Potassium 3.8 mmol/L (3.5-5.1); Sodium 140 mmol/L (136-145)
--- NOTE | 2019-11-10 05:36 | PDOC.FM ---
- Subjective Subjective: Pt awake and alert this morning. No complaints or events overnight. Denies any difficulty urinating with timed voids. - Objective Vital Signs & Weight: Vital Signs (12 hours) Temp Pulse Resp BP Pulse Ox 11/10/19 03:15 98.3 F 65 17 145/87 H 96 11/09/19 23:55 99 F 75 16 166/90 H 94 L 11/09/19 20:00 98.7 F 68 14 137/80 97 Weight Admit Weight 78.199 kg Weight 82.554 kg Most Recent Monitor Data Heart Rate from ECG 88 NIBP 147/93 NIBP BP-Mean 111 Respiration from ECG 16 SpO2 93 I&O: 11/08/19 11/09/19 11/10/19 06:59 06:59 06:59 Intake Total 626 750 Output Total 1225 1925 Balance -599 -1175 Result Diagrams: 11/10/19 04:19 11/10/19 04:19 Phys Exam - Physical Examination Constitutional: NAD HEENT: moist MMs, sclera anicteric Respiratory: clear to auscultation bilateral Cardiovascular: RRR strength 4/5 on RUE Neurological: non-focal, moves all 4 limbs Aphasia much improved from yesterday. Speaking clear short sentences Psychiatric: normal affect, A&O x 3 Dx/Plan - Plan Plan: Acute hemorrhagic CVA with subfalcine herniation -Stable neuro exam today -PT/ST/OT evaluated, all recommend inpt rehab - Pending placement Chronic HTN -Currently controlled until nearing end of dosing -Will increase Coreg 12.5 to 25 BID, continue Norvasc 5mg - consider increase to 10mg if still not controlled -Prn Hydralazine Urinary Retention - Lamar DC'd yesterday - Pt successful with timed voids currently Hypokalemia, resolved -Replace prn UTI - S/p treatment Social: Case Management consulted for placement. Choice letter signed for [facility] inpatient rehab, pending insurance approval. No progress over weekend. VTE: scd's, anticoagulation contraindicated Diet: Puree--can advanced to ground textured solids per Speech therapy recs Fluids: SL Code: full per Dispo: Stable, stroke unit. Pending inpt rehab placement. Addendum - Attending - Attending Attestation Date/Time: 11/10/19 [id number] I personally evaluated the patient and discussed the management with Dr. Hoffman I agree with the History, Examination, Assessment and Plan documented above with any addition or exceptions noted below - Patient sitting up in bed. Able to void after lamar d/c'd. Afebrile VSS A/P: 1) L hemorrhagic CVA - stable; continue PT/OT/ST; awaiting insurance approval for rehab. 2) HTN- improved; continue current meds.
[2019-11-10] MEDS ORDERED: Carvedilol 25 MG TAB PO SCH (08:00)
[2019-11-10] MEDS: Amlodipine 5 MG TAB PO SCH (09:53)
[2019-11-10] MEDS: Potassium Bicarbonate/Cit Ac 25 MEQ TAB PO SCH (09:53)
[2019-11-10 11:54] VITALS: BP 129/75; TEMP 98
--- NOTE | 2019-11-10 12:49 | PDOC.HOSPP ---
- Subjective Encounter Date: 11/10/19 Subjective: NEUROLOGY PROGRESS NOTE Patient more alert today but persistent aphasia. She was able to tell her name. Following commands appropriately. - Objective Vital Signs & Weight: Vital Signs (12 hours) Temp Pulse Resp BP BP BP Pulse Ox 11/10/19 11:53 98.0 F 76 16 129/75 98 11/10/19 09:53 87 147/82 H 11/10/19 07:50 98.2 F 69 15 186/106 H 95 11/10/19 07:12 96 11/10/19 03:15 98.3 F 65 17 145/87 H 96 Weight Admit Weight 172 lb 6.4 oz Weight 182 lb Most Recent Monitor Data Heart Rate from ECG 88 NIBP 147/93 NIBP BP-Mean 111 Respiration from ECG 16 SpO2 93 I&O: 11/09/19 11/10/19 11/11/19 06:59 06:59 06:59 Intake Total 750 Output Total 1925 Balance -1175 Result Diagrams: 11/10/19 04:19 11/10/19 04:19 Radiology Reviewed by me: Yes EKG Reviewed by me: Yes Hospitalist ROS - Review of Systems ROS unobtainable: due to mental status (aphasia) Neurological: reports: weakness, incoordination, change in speech - Medication Medications: Active Medications Generic Name Dose Route Start Last Admin Trade Name Freq PRN Reason Stop Dose Admin Acetaminophen 650 mg 11/05/19 07:09 11/07/19 01:07 Tylenol PO 650 mg Q6H PRN Administration Mild-Moderate Pain (1-5) Amlodipine Besylate 5 mg 11/07/19 09:00 11/10/19 09:53 Norvasc PO 5 mg DAILY NANDO Administration Atorvastatin Calcium 40 mg 11/05/19 21:00 11/09/19 20:47 Lipitor PO 40 mg HS NANDO Administration Carvedilol 25 mg 11/10/19 08:00 11/10/19 09:52 Coreg PO 25 mg BID-WM NANDO Administration Famotidine 20 mg 11/04/19 21:00 11/09/19 20:47 Pepcid PO 20 mg Q12HR NANDO Administration Hydralazine HCl 5 mg 11/07/19 00:17 11/09/19 05:06 Apresoline SLOW IVP 5 mg Q15MIN PRN Administration SBP GREATER THAN 160 Potassium Bicarbonate/Citric Acid 25 meq 11/07/19 08:00 11/10/19 09:53 K-Vescent PO 25 meq QAM-WM NANDO Administration Sodium Chloride 10 ml 11/03/19 08:11 11/09/19 08:19 Flush - Normal Saline IVF 10 ml PRN PRN Administration Saline Flush - Exam General Appearance: awake alert Eye: PERRL ENT: normocephalic atraumatic Neck: supple Heart: RRR Respiratory: CTAB Gastrointestinal: soft Extremities: no cyanosis Skin: normal turgor Neurological: facial droop, hemiplegia, speech deficit, vision deficit Neurological - other findings: right hemiparesis Musculoskeletal: no muscle wasting Psychiatric: normal affect, normal behavior (aphasic) Hosp A/P (1) Hemorrhagic cerebrovascular accident (CVA) Code(s): I61.9 - NONTRAUMATIC INTRACEREBRAL HEMORRHAGE, UNSPECIFIED Status: Acute (2) Chronic hypertension Code(s): I10 - ESSENTIAL (PRIMARY) HYPERTENSION Status: Acute - Plan plan discussed w/ family, PT/OT, speech therapy, out of bed/ambulate 59 year old female with hemorrhagic stroke continues to be aphasic with right hemiparesis. Interval improvement in neurological symptoms. Dee discontinued. Participating in physical therapy. MRI brain from 11/05/2019 reviewed which showed stable findings and left parietal lobe hemorrhage. EEG reviewed which did not reveal any seizure activity. 2 D Echo pending Neurochecks every 4 hours. Repeat NCHCT if the condition declines. Strict control of BP and BG. Telemetry Continue aspirin high intensity statin for secondary stroke prevention. Continue supportive measures. PT/OT/ Speech recommended rehab. Awaiting placement. Continue medical management per primary team. Plan discussed in detail with the patient and the patient's
[2019-11-10] MEDS: Famotidine 20 MG TAB PO SCH (12:59)
--- NOTE | 2019-11-12 02:23 | DIS ---
DATE OF ADMISSION: 11/03/2019 DATE OF DISCHARGE: 11/10/2019 ADMITTING ATTENDING: Wolf Duncan MD. DISCHARGE ATTENDING: Jayde Donovan MD. RESIDENT: Wade Hoffman DO. CONSULTS: 1. Neurology, Dr. Norma Diamond. 2. Neurosurgery, Dr. Martínez manzano. PROCEDURES: 1. EEG on 11/06/[address] Norma Diamond. Impression: Low amplitude delta and theta activity seen on right frontal temporal and parietal occipital regions. Occasional regular theta activity seen in the left frontal, temporal and parieto-occipital regions. Asymmetry of posterior background rhythm. Absence of posterior background rhythm on the left. Interpretation: This EEG is consistent with focal cerebral dysfunction in the left cerebral hemisphere. There is also evidence of moderate generalized nonspecific cerebral dysfunction. No ictal or interictal epileptiform abnormalities seen during the recording. 2. Brain CT on 11/03/2019. Impression: Large acute left cerebral intra-axial hematoma causing mass effect with subfalcine herniation. Probably no significant interval change. 3. Carotid Doppler ultrasound 11/05/2019. Impression: No abnormal increased velocities. Minimal intimal thickening bilaterally. Evidence of atherosclerotic carotid artery vascular disease. 4. Brain CT brain MRI 11/05/2019. Impression: Left parietal lobe hematoma is again noted. There were mass effect and midline shift which has not significantly changed when compared to the previous CT. 5. Brain CT 11/07/2019. Impression: Persistent left intraparenchymal hematoma with edema with slight progression on left to right subfalcine shift. 6. Echocardiogram 11/07/2019. Impression: LVEF estimated at 55% to 60% with mild concentric left ventricular hypertrophy. Suggestions of diastolic dysfunction. PRIMARY DIAGNOSES: Acute left middle cerebral artery region stroke with hemorrhagic conversion and subsequent subfalcine herniation. SECONDARY DIAGNOSIS: Chronic hypertension. DISCHARGE MEDICATIONS: 1. Zyrtec 10 mg daily. 2. Tylenol 650 mg q.6 hours p.r.n. 3. Norvasc 5 mg daily. 4. Atorvastatin 40 mg at bedtime. 5. Dulcolax 10 mg daily. 6. Pepcid 20 mg b.i.d. 7. Potassium 25 mEq daily. 8. Coreg 25 mg b.i.d. HISTORY OF PRESENT ILLNESS AND HOSPITAL COURSE: A 59-year-old female with past medical history of hypertension, presented to our emergency department as a transfer from [facility] where she was diagnosed with a hemorrhagic CVA, seen on brain CT. The patient was last seen normal 17 hours prior to arrival. She was found by her who is currently traveling abroad and was unable to contact the patient, so he called in a wellness check and the patient was found to be aphasic with right hemiplegia. Initial blood pressures were greater than 220 systolic. Neurosurgery was consulted from the ER due to the hemorrhagic conversion of the stroke with subfalcine hemorrhage. They determined there was no surgical intervention needed at that time. Due to the patient's elevated blood pressure, she was started on a Cardene drip in the ER and subsequently admitted to the hospital. The patient's blood pressures were rapidly controlled with Cardene drip, which was gradually titrated off. While the patient was off the Cardene drip, oral medications were titrated up. She was eventually found that Coreg 25 mg b.i.d. and amlodipine 5 mg daily was a regimen that provided adequate control of the patient's blood pressures. Due to the acute strokes, Dr. Diamond, Neurologist, was consulted and saw the patient as well. She performed an EEG with the above findings. No seizure activity was witnessed. The patient was medically optimized with atorvastatin and adequate blood pressure control. Throughout the patient's stay, she worked with physical therapy, occupational therapy and Speech Therapy. Her neuro deficits gradually improved to the point where she was able to speak short sentences clearly with minimal word-finding difficulties. Her weakness greatly improved to the point were her only residual deficits were 4/5 strength in the right upper extremity. The patient did experience some urinary retention during her hospital stay, but prior to discharge, passed a voiding trial and was urinating on her own without difficulty. After discussion with the patient and her , they elected to pursue inpatient rehab as recommended by Physical Therapy. DISCHARGE INSTRUCTIONS: Location: Inpatient Rehab Facility. Activity: As tolerated and directed by the therapy. Diet: Heart healthy. Followup: PCP within 7 days. Job ID: [id number] MTDD
--- NOTE | 2019-11-14 12:10 | EKG ---
Test Reason : AMS Blood Pressure : / mmHG Vent. Rate : 117 BPM Atrial Rate : 104 BPM P-R Int : 000 ms QRS Dur : 082 ms QT Int : 428 ms P-R-T Axes : 000 004 038 degrees QTc Int : 597 ms Sinus tachycardia Confirmed by VALERIE AHMADI DO ([id number]), electronic news gathering editor DYAN BRASWELL ([id number]) on 11/14/2019 12:10:42 PM Referred By: Confirmed By:VALERIE AHMADI DO
== END 2019-11-10 15:30 | DRG 64 ==
LOC: ERS 06:13 → CCU 09:15 → 2SE 11-05 11:30
PROVIDERS: ADMIT Student in an Organized Health Care Education/Training Program; ATTEND Student in an Organized Health Care Education/Training Program
DX: I63.312 Cerebral infarction due to thrombosis of left middle cerebral artery (principal); G93.6 Cerebral edema; I62.9 Nontraumatic intracranial hemorrhage, unspecified; G81.91 Hemiplegia, unspecified affecting right dominant side; N39.0 Urinary tract infection, site not specified; G81.94 Hemiplegia, unspecified affecting left nondominant side; E87.6 Hypokalemia; R47.01 Aphasia; I10 Essential (primary) hypertension; Z90.49 Acquired absence of other specified parts of digestive tract; Z98.51 Tubal ligation status
CPT/HCPCS: 36415; 36416; 70450; 70551; 80048; 80061; 81001; 83036; 83735; 83930; 85025; 87077; 87086; 87186; 93005; 93306; 93880; 95712; 95819; 95957; 96365; 96366; J0360; J0696; J2150; J2270; J3490; J7050; S0028